=== PATIENT | female | born 1970 ===

== ENCOUNTER 2017-06-23 20:45 | Observation (INO) | payer SELFPAY ==
[2017-06-23] MEDS ORDERED: Sodium Chloride 0.9% 1,000 ML IV STA (21:16)
[2017-06-23] MEDS ORDERED: Iohexol 240 (50 ml) PO ONE (21:18)
--- NOTE | 2017-06-23 21:30 | ED PDOC ---
HPI: Abdomen Time Seen by Provider: 06/23/17 21:02 Chief Complaint (Nursing): Abdominal Pain Chief Complaint (Provider): abdominal pain History Per: Patient, [employer] History/Exam Limitations: no limitations Onset/Duration Of Symptoms: Days (1) Current Symptoms Are (Timing): Still Present Location Of Pain/Discomfort: RLQ, Epigastric, LLQ, Suprapubic Quality Of Discomfort: "Pain" Associated Symptoms: Diarrhea Additional Complaint(s): 47 y/o female presents for evaluation of intermittent lower abdominal pain x 1 day. Patient reports intermittent abdominal pain x 3 months, but states today pain is different and more intense. Patient reports 3 episodes of nonbloody diarrhea today. Denies fever, nausea/vomiting, chest pain, shortness of breath , palpitations, urinary symptoms. Patient states she had abdomen u/s on 06/18 and has appointment next week to follow up for results. Abnormal Vaginal Bleeding: No Last Menstral Period: now Past Medical History Reviewed: Historical Data, Nursing Documentation, Vital Signs Vital Signs: Last Vital Signs Temp 98.9 F 06/24/17 04:08 Pulse 81 06/24/17 04:08 Resp 20 06/24/17 04:08 BP 115/66 06/24/17 04:08 Pulse Ox 99 06/24/17 02:58 - Medical History PMH: Hyperthyroidism - Surgical History Surgical History: - Family History Family History: States: No Known Family Hx - Living Arrangements Living Arrangements: With Family - Home Medications Home Medications: Ambulatory Orders Medication Instructions Recorded Levothyroxine [Synthroid] 1 tab PO DAILY 06/24/17 - Allergies Allergies/Adverse Reactions: Allergies Allergy/AdvReac Type Severity Reaction Status Date / Time No Known Allergies Allergy Verified 06/23/17 20:59 Review of Systems ROS Statement: Except As Marked, All Systems Reviewed And Found Negative Gastrointestinal: Positive for: Abdominal Pain, Diarrhea Physical Exam - Reviewed Nursing Documentation Reviewed: Yes Vital Signs Reviewed: Yes - Physical Exam Appears: Positive for: Well, Non-toxic, No Acute Distress Head Exam: Positive for: ATRAUMATIC, NORMAL INSPECTION, NORMOCEPHALIC Skin: Positive for: Normal Color Eye Exam: Positive for: Normal appearance ENT: Positive for: Normal ENT Inspection Cardiovascular/Chest: Positive for: Regular Rate, Rhythm Respiratory: Positive for: Normal Breath Sounds Gastrointestinal/Abdominal: Positive for: Tenderness (epigastric, rlq, suprapubic, llq) Back: Positive for: Normal Inspection Extremity: Positive for: Normal ROM Neurologic/Psych: Positive for: Alert, Oriented - Laboratory Results Result Diagrams: 06/23/17 21:55 06/23/17 21:55 - ECG ECG: Positive for: Viewed By Me (reviewed by ED attending) ECG Rhythm: Positive for: Sinus Rhythm O2 Sat by Pulse Oximetry: 99 Pulse Ox Interpretation: Normal - Radiology X-Ray: Viewed By Me X-Ray Interpretation: No Acute Disease - Progress ED Course And Treament: labs, urine, IV fluids, IV toradol EXAM: CT Abdomen and Pelvis With Intravenous Contrast CLINICAL HISTORY: 47 years old, female; Pain; Abdominal pain; Epigastric; Prior surgery; Surgery date: 6+ months; Surgery type: ; Additional info: Abd pain TECHNIQUE: Axial computed tomography images of the abdomen and pelvis with intravenous contrast. All CT scans at this facility use one or more dose reduction techniques, viz.: automated exposure control; ma/kV adjustment per patient size (including targeted exams where dose is matched to indication; i.e. head); or iterative reconstruction technique. Coronal and sagittal reformatted images were created and reviewed. CONTRAST: 90 mL of [id number] administered intravenously. COMPARISON: No relevant prior studies available. FINDINGS: Limitations: Motion artifact - mild. Lower thorax: No acute findings. ABDOMEN: Liver: Unremarkable. No mass. Gallbladder and bile ducts: No calcified stones. No ductal dilation. Pancreas: Apparent 1.1 x 0.6 x 0.9 cm hypodense lesion within tail of pancreas. No ductal dilation. Spleen: No splenomegaly. Adrenals: No mass. Kidneys and ureters: No mass. No hydronephrosis. Stomach and bowel: Segmental areas of probable underdistention of LEFT colon. No definite mural thickening. No obstruction. Appendix: Enlarged appendix, measuring up to 1.2 cm in diameter. Mild mucosal enhancement. [id number] stranding about appendix. PELVIS: Bladder: Unremarkable. Reproductive: Unremarkable as visualized. ABDOMEN and PELVIS: Intraperitoneal space: Trace free fluid within pelvis. No free air. Bones/joints: Probable bone islands. No acute fracture. Soft tissues: Tiny umbilical hernia containing fat. Vasculature: Unremarkable. No aneurysm. Lymph nodes: No pathologically enlarged lymph nodes. IMPRESSION: 1. Acute appendicitis. 2. Apparent pancreatic lesion. Recommend nonemergent MRI. 3. Incidental/non-acute findings are described above. IV Zosyn ordered Patient evaluated by Dr. Lopez, surgical scrub technician on-call. Patient evaluated by Dr. Crowley, FP resident on-call for admission. Disposition - Clinical Impression Clinical Impression: Acute appendicitis - Patient ED Disposition Is Patient to be Admitted: Yes - Disposition Disposition Time: 02:20 Condition: FAIR
[2017-06-23] MEDS ORDERED: Iohexol 240 (50 ml) ONE (21:43)
[2017-06-23 22:07] LABS: SQUAMOUS EPITHIAL < 1 /hpf (0-5); URINE BACTERIA RARE (<OCC); URINE BILIRUBIN NEGATIVE (NEGATIVE); URINE BLOOD MODERATE (NEGATIVE); URINE CLARITY CLEAR (Clear); URINE COLOR STRAW (YELLOW); URINE GLUCOSE (UA) NEG (Normal); URINE LEUKOCYTE ESTERASE NEG Leu/uL (Negative); URINE PROTEIN NEGATIVE (NEGATIVE); URINE UROBILINOGEN 0.2-1.0 mg/dL (0.2-1.0)
[2017-06-23 22:12] LABS: ALB/GLOB RATIO 1.3 (1.0-2.1); ALBUMIN 4.5 g/dL (3.5-5.0); ALT/SGPT 39 U/L (9-52); AST/SGOT 36 U/L (14-36); BLOOD UREA NITROGEN 8 mg/dl (7-17); CALCIUM 9.6 mg/dL (8.4-10.2); GFR AFRICAN-AMERICAN > 60; GFR NON-AFRICAN AMERICAN > 60; LIPASE 81 U/L (23-300)
[2017-06-23 22:29] LABS: BASO % 0.3 % (0.0-2.0); EOS # 0.1 K/uL (0.0-0.7); EOS % 0.4 % (0.0-4.0); HEMOGLOBIN 9.8 g/dL (12.0-16.0); LYMPH # 1.2 K/uL (1.0-4.3); LYMPH % 7.5 % (20.0-40.0); MEAN CELL VOLUME 69.1 fl (81.0-99.0); MEAN CORPUSCULAR HEMOGLOBIN 21.1 pg (27.0-31.0); MEAN CORPUSCULAR HGB CONC 30.5 g/dL (33.0-37.0); MEAN PLATELET VOLUME 8.3 fl (7.2-11.7); MONO # 1.2 K/uL (0.0-0.8); MONO % 7.7 % (0.0-10.0); NEUT # 13.1 K/uL (1.8-7.0); NEUT % 84.1 % (50.0-75.0); PLATELET COUNT 318 K/uL (130-400); RBC 4.63 Mil/uL (3.80-5.20); RED CELL DISTRIBUTION WIDTH 17.8 % (11.5-14.5); WHITE BLOOD COUNT 15.5 K/uL (4.8-10.8)
[2017-06-23 23:13] LABS: ANISOCYTOSIS SLIGHT; BANDS 3 % (0-2); LYMPHOCYTE 14 % (20-50); MONOCYTE 6 % (0-10); NEUTROPHIL 77 % (42-75); PLATELET ESTIMATE NORMAL (NORMAL); TOTAL CELLS COUNTED 100
[2017-06-23 23:14] LABS: HYPOCHROMIC SLIGHT; MICROCYTOSIS SLIGHT; OVALOCYTES SLIGHT; POIKILOCYTOSIS SLIGHT; POLYCHROMIC SLIGHT
[2017-06-24] MEDS ORDERED: Sodium Chloride 0.9% 100 ML ONE (01:11)
[2017-06-24] MEDS ORDERED: Iohexol 300 100 ML IJ ONE (01:11)
--- NOTE | 2017-06-24 01:58 | CT ---
EXAM: CT Abdomen and Pelvis With Intravenous Contrast CLINICAL HISTORY: 47 years old, female; Pain; Abdominal pain; Epigastric; Prior surgery; Surgery date: 6+ months; Surgery type: ; Additional info: Abd pain TECHNIQUE: Axial computed tomography images of the abdomen and pelvis with intravenous contrast. All CT scans at this facility use one or more dose reduction techniques, viz.: automated exposure control; ma/kV adjustment per patient size (including targeted exams where dose is matched to indication; i.e. head); or iterative reconstruction technique. Coronal and sagittal reformatted images were created and reviewed. CONTRAST: 90 mL of [id number] administered intravenously. COMPARISON: No relevant prior studies available. FINDINGS: Limitations: Motion artifact - mild. Lower thorax: No acute findings. ABDOMEN: Liver: Unremarkable. No mass. Gallbladder and bile ducts: No calcified stones. No ductal dilation. Pancreas: Apparent 1.1 x 0.6 x 0.9 cm hypodense lesion within tail of pancreas. No ductal dilation. Spleen: No splenomegaly. Adrenals: No mass. Kidneys and ureters: No mass. No hydronephrosis. Stomach and bowel: Segmental areas of probable underdistention of LEFT colon. No definite mural thickening. No obstruction. Appendix: Enlarged appendix, measuring up to 1.2 cm in diameter. Mild mucosal enhancement. [id number] stranding about appendix. PELVIS: Bladder: Unremarkable. Reproductive: Unremarkable as visualized. ABDOMEN and PELVIS: Intraperitoneal space: Trace free fluid within pelvis. No free air. Bones/joints: Probable bone islands. No acute fracture. Soft tissues: Tiny umbilical hernia containing fat. Vasculature: Unremarkable. No aneurysm. Lymph nodes: No pathologically enlarged lymph nodes. IMPRESSION: 1. Acute appendicitis. 2. Apparent pancreatic lesion. Recommend nonemergent MRI. 3. Incidental/non-acute findings are described above.
[2017-06-24] MEDS ORDERED: Piperacillin/Tazobact 3.375 GM in Sodium Chloride 0.9% 100 ML IV ONE (01:59)
[2017-06-24] MEDS ORDERED: Piperacillin/Tazobact 3.375 gm Inj IVPB ONE ×2 (02:02→08:45)
[2017-06-24 02:29] LABS: INR 1.1 (0.9-1.2); PARTIAL THROMBOPLASTIN TIME 30.5 Seconds (25.6-37.1); PROTHROMBIN TIME 12.4 Seconds (9.8-13.1)
--- NOTE | 2017-06-24 02:44 | CP.PCM.CON ---
<JessicaLiun - Last Filed: 06/24/17 02:50> History of Present Illness - History of Present Illness History of Present Illness: General Surgery Consult for Dr. Fleming This is a 47F with a PMH of hypothyroid who presents to the ED with one day of generalized abdominal pain that is more present in the lower abdomen. The pain is associated with nausea and chills however she did not take her temp home and had no episodes of emesis. She denies any changes in bowel habits or caliber. She has never felt any similar pain to this before. she did not take anything at home to try an alleviate the pain. In the ED she had a CT scan of the abdomen which shows an enlarged appendix. PMH:Hypothyroid PSH: ALL:NKDA Social: No tobacco, ethanol or drugs Review of Systems - Review of Systems All systems: reviewed and no additional remarkable complaints except - Constitutional Constitutional: As Per HPI, Chills. absent: Fever - Gastrointestinal Gastrointestinal: Abdominal Pain, Nausea. absent: Change in Bowel Habits, Change in Stool Character, Diarrhea, Vomiting Past Patient History - Past Social History Smoking Status: Never Smoked - ENDOCRINE/METABOLIC Hx Hyperthyroidism: Yes - PSYCHIATRIC Hx Substance Use: No Meds Allergies/Adverse Reactions: Allergies Allergy/AdvReac Type Severity Reaction Status Date / Time No Known Allergies Allergy Verified 06/23/17 20:59 - Medications Medications: Current Medications Piperacillin Sod/Tazobactam (Sod 3.375 gm/ Sodium Chloride) 100 mls @ 100 mls/ hr IV ONCE ONE PRN Reason: Protocol Stop: 06/24/17 02:58 Morphine Sulfate (Morphine) 1 mg IVP Q4 PRN PRN Reason: Pain, moderate (4-7) Morphine Sulfate (Morphine) 2 mg IVP Q6 PRN PRN Reason: Pain, severe (8-10) Pantoprazole Sodium (Protonix Ec Tab) 40 mg PO DAILY AMANDA Physical Exam - Constitutional Appears: Non-toxic, No Acute Distress - Head Exam Head Exam: ATRAUMATIC, NORMOCEPHALIC - Eye Exam Eye Exam: EOMI, Normal appearance - ENT Exam ENT Exam: Mucous Membranes Moist - Respiratory Exam Respiratory Exam: NORMAL BREATHING PATTERN - Cardiovascular Exam Cardiovascular Exam: +S1, +S2 - GI/Abdominal Exam GI & Abdominal Exam: Hernia, Rebound, Soft. absent: Firm, Guarding Additional comments: Significant tenderness more progressed in the RLQ - Neurological Exam Neurological exam: Alert - Psychiatric Exam Psychiatric exam: Normal Affect, Normal Mood - Skin Skin Exam: Dry, Intact Results - Vital Signs Recent Vital Signs: Last Vital Signs Temp 99.2 F 06/23/17 20:55 Pulse 84 06/23/17 20:55 Resp 18 06/23/17 20:55 BP 136/72 06/23/17 20:55 Pulse Ox 99 06/24/17 02:37 - Labs Result Diagrams: 06/23/17 21:55 06/23/17 21:55 Labs: Laboratory Results - last 24 hr 06/23/17 06/23/17 06/23/17 21:55 21:55 21:55 WBC 15.5 H D RBC 4.63 Hgb 9.8 L Hct 32.0 L MCV 69.1 L D MCH 21.1 L MCHC 30.5 L RDW 17.8 H Plt Count 318 MPV 8.3 Neut % (Auto) 84.1 H Lymph % (Auto) 7.5 L Morrill % (Auto) 7.7 Eos % (Auto) 0.4 Baso % (Auto) 0.3 Neut # (Auto) 13.1 H Lymph # (Auto) 1.2 Morrill # (Auto) 1.2 H Eos # (Auto) 0.1 Baso # (Auto) 0.0 Neutrophils % (Manual) 77 H Band Neutrophils % 3 H Lymphocytes % (Manual) 14 L Monocytes % (Manual) 6 Platelet Estimate Normal Polychromasia Slight Hypochromasia (manual) Slight Poikilocytosis (manual Slight Anisocytosis (manual) Slight Microcytosis (manual) Slight Ovalocytes Slight PT INR APTT Sodium 142 Potassium 4.0 Chloride 102 Carbon Dioxide 26 Anion Gap 18 BUN 8 Creatinine 0.6 L Est GFR ( Amer) > 60 Est GFR (Non-Af Amer) > 60 Random Glucose 107 H Calcium 9.6 Total Bilirubin 1.3 AST 36 ALT 39 Alkaline Phosphatase 85 Total Protein 7.9 Albumin 4.5 Globulin 3.4 Albumin/Globulin Ratio 1.3 Lipase 81 Urine Color Straw Urine Clarity Clear Urine pH 7.0 Ur Specific [place] 1.005 Urine Protein Negative Urine Glucose (UA) Neg Urine Ketones Negative Urine Blood Moderate Urine Nitrate Negative Urine Bilirubin Negative Urine Urobilinogen 0.2-1.0 Ur Leukocyte Esterase Neg Urine RBC (Auto) 7 H Urine Microscopic WBC < 1 Ur Squamous Epith Cells < 1 Urine Bacteria Rare 06/24/17 02:00 WBC RBC Hgb Hct MCV MCH MCHC RDW Plt Count MPV Neut % (Auto) Lymph % (Auto) Morrill % (Auto) Eos % (Auto) Baso % (Auto) Neut # (Auto) Lymph # (Auto) Morrill # (Auto) Eos # (Auto) Baso # (Auto) Neutrophils % (Manual) Band Neutrophils % Lymphocytes % (Manual) Monocytes % (Manual) Platelet Estimate Polychromasia Hypochromasia (manual) Poikilocytosis (manual Anisocytosis (manual) Microcytosis (manual) Ovalocytes PT 12.4 INR 1.1 APTT 30.5 Sodium Potassium Chloride Carbon Dioxide Anion Gap BUN Creatinine Est GFR ( Amer) Est GFR (Non-Af Amer) Random Glucose Calcium Total Bilirubin AST ALT Alkaline Phosphatase Total Protein Albumin Globulin Albumin/Globulin Ratio Lipase Urine Color Urine Clarity Urine pH Ur Specific [place] Urine Protein Urine Glucose (UA) Urine Ketones Urine Blood Urine Nitrate Urine Bilirubin Urine Urobilinogen Ur Leukocyte Esterase Urine RBC (Auto) Urine Microscopic WBC Ur Squamous Epith Cells Urine Bacteria Assessment & Plan - Assessment and Plan (Free Text) Assessment: 47F with acute appendicitis NPO Zosyn IVF Possible OR later unless determined to be ruptured D/W Dr. Bernadette Lopez PGY2 <Ramone Fleming - Last Filed: 06/24/17 08:49> History of Present Illness - History of Present Illness History of Present Illness: Patient was seen and examined at the bedside. Agree with resident's note above. Meds - Medications Medications: Current Medications Sodium Chloride (Sodium Chloride 0.9%) 1,000 mls @ 125 mls/hr IV .Q8H AMANDA Stop: 06/25/17 02:48 Lactated Ringer's (Lactated Ringer's) 1,000 mls @ 125 mls/hr IV .Q8H AMANDA Last Admin: 06/24/17 03:46 Dose: 125 mls/hr Piperacillin Sod/Tazobactam (Sod 3.375 gm/ Sodium Chloride) 100 mls @ 100 mls/ hr IVPB 0300,0900,1500,2100 AMANDA PRN Reason: Protocol Levothyroxine Sodium (Synthroid) 75 mcg PO DAILY@0630 [facility] Morphine Sulfate (Morphine) 4 mg IVP Q6 PRN PRN Reason: Pain, severe (8-10) Morphine Sulfate (Morphine) 2 mg IVP Q4 PRN PRN Reason: Pain, moderate (4-7) Last Admin: 06/24/17 04:04 Dose: 2 mg Ondansetron HCl (Zofran Inj) 4 mg IVP Q4 PRN PRN Reason: Nausea/Vomiting Pantoprazole Sodium (Protonix Ec Tab) 40 mg PO DAILY [facility] Physical Exam - GI/Abdominal Exam Additional comments: soft, RLQ tenderness, ND, BS+, no rebound, no guarding Results - Vital Signs Recent Vital Signs: Last Vital Signs Temp 98.6 F 06/24/17 08:07 Pulse 88 06/24/17 08:07 Resp 20 06/24/17 08:07 BP 95/52 L 06/24/17 08:07 Pulse Ox 97 06/24/17 08:07 - Labs Result Diagrams: 06/24/17 06:00 06/24/17 06:05 Labs: Laboratory Results - last 24 hr 06/23/17 06/23/17 06/23/17 21:55 21:55 21:55 WBC 15.5 H D RBC 4.63 Hgb 9.8 L Hct 32.0 L MCV 69.1 L D MCH 21.1 L MCHC 30.5 L RDW 17.8 H Plt Count 318 MPV 8.3 Neut % (Auto) 84.1 H Lymph % (Auto) 7.5 L Morrill % (Auto) 7.7 Eos % (Auto) 0.4 Baso % (Auto) 0.3 Neut # (Auto) 13.1 H Lymph # (Auto) 1.2 [place]rill # (Auto) 1.2 H Eos # (Auto) 0.1 Baso # (Auto) 0.0 Neutrophils % (Manual) 77 H Band Neutrophils % 3 H Lymphocytes % (Manual) 14 L Monocytes % (Manual) 6 Platelet Estimate Normal Polychromasia Slight Hypochromasia (manual) Slight Poikilocytosis (manual Slight Anisocytosis (manual) Slight Microcytosis (manual) Slight Ovalocytes Slight PT INR APTT Sodium 142 Potassium 4.0 Chloride 102 Carbon Dioxide 26 Anion Gap 18 BUN 8 Creatinine 0.6 L Est GFR ( Amer) > 60 Est GFR (Non-Af Amer) > 60 Random Glucose 107 H Calcium 9.6 Total Bilirubin 1.3 AST 36 ALT 39 Alkaline Phosphatase 85 Total Protein 7.9 Albumin 4.5 Globulin 3.4 Albumin/Globulin Ratio 1.3 Lipase 81 Urine Color Straw Urine Clarity Clear Urine pH 7.0 Ur Specific [place] 1.005 Urine Protein Negative Urine Glucose (UA) Neg Urine Ketones Negative Urine Blood Moderate Urine Nitrate Negative Urine Bilirubin Negative Urine Urobilinogen 0.2-1.0 Ur Leukocyte Esterase Neg Urine RBC (Auto) 7 H Urine Microscopic WBC < 1 Ur Squamous Epith Cells < 1 Urine Bacteria Rare 06/24/17 06/24/17 06/24/17 02:00 06:00 06:05 WBC 17.5 H RBC 4.09 Hgb 8.8 L Hct 27.8 L MCV 68.0 L MCH 21.5 L MCHC 31.6 L RDW 18.3 H Plt Count 281 MPV 7.8 Neut % (Auto) 88.9 H Lymph % (Auto) 5.5 L Morrill % (Auto) 5.3 Eos % (Auto) 0.1 Baso % (Auto) 0.2 Neut # (Auto) 15.6 H Lymph # (Auto) 1.0 Morrill # (Auto) 0.9 H Eos # (Auto) 0.0 Baso # (Auto) 0.0 Neutrophils % (Manual) Band Neutrophils % Lymphocytes % (Manual) Monocytes % (Manual) Platelet Estimate Polychromasia Hypochromasia (manual) Poikilocytosis (manual Anisocytosis (manual) Microcytosis (manual) Ovalocytes PT 12.4 INR 1.1 APTT 30.5 Sodium 141 Potassium 3.6 Chloride 106 Carbon Dioxide 22 Anion Gap 17 BUN 8 Creatinine 0.6 L Est GFR ( Amer) > 60 Est GFR (Non-Af Amer) > 60 Random Glucose 125 H Calcium 8.6 Total Bilirubin 2.2 H AST 37 H ALT 33 Alkaline Phosphatase 78 Total Protein 6.9 Albumin 3.7 Globulin 3.2 Albumin/Globulin Ratio 1.2 Lipase Urine Color Urine Clarity Urine pH Ur Specific [place] Urine Protein Urine Glucose (UA) Urine Ketones Urine Blood Urine Nitrate Urine Bilirubin Urine Urobilinogen Ur Leukocyte Esterase Urine RBC (Auto) Urine Microscopic WBC Ur Squamous Epith Cells Urine Bacteria - Imaging and Cardiology CT scan - abdomen Status: Image reviewed by me, Report reviewed by me Assessment & Plan - Assessment and Plan (Free Text) Plan: - Keep NPO - IV fluids - pain control - Zofran prn - To OR for Appendectomy
[2017-06-24] MEDS ORDERED: Sodium Chloride 0.9% 1,000 ML IV SCH (03:00)
[2017-06-24] MEDS ORDERED: Morphine 4 MG/ML VIAL IVP PRN ×2 (03:33→09:38)
[2017-06-24] MEDS ORDERED: Lactated Ringer's 1,000 ML IV SCH (03:45)
[2017-06-24] MEDS ORDERED: Piperacillin/Tazobact 3.375 GM in Sodium Chloride 0.9% 100 ML IVPB SCH (04:00)
--- NOTE | 2017-06-24 04:01 | CP.PCM.HP ---
History of Present Illness - History of Present Illness History of Present Illness: 47 year old female presents with 3 day history of worsening abdominal pain and diarrhea. Abdominal pain is severe, periumbilcal with associated nausea. Notes she had multiple episodes of non bloody diarrhea. No fevers or chills. She went to work today but pain became so severe she came to ED. Did not take medications for pain at home. She has history of epigastric pain and bloating. Seen in clinic and tested for h.pylori that was positive, and abd u/s done outpatient was unremarkable. LMP : 06/23/17, reports 2 days of heavy bleeding x 10 pads on those days, total of 5 days. PMD: Dr. Pena PMH: hypothyroidism, anemia Medications: Levothyroxine 75 mcg Allergies: NKDA Social: Denies etoh, tobacco, illicit drug use. 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 Surgical Hx: x 1 (2003) Family hx unknown Present on Admission - Present on Admission Any Indicators Present on Admission: No Review of Systems - Constitutional Constitutional: absent: Chills, Fever - EENT Eyes: absent: Diplopia, Photophobia Ears: absent: Decreased Hearing Nose/Mouth/Throat: absent: Nasal Congestion, Nose Pain, Neck Pain - Respiratory Respiratory: absent: Cough, Dyspnea, Wheezing, Stridor - Gastrointestinal Gastrointestinal: Abdominal Pain Past Patient History - Past Social History Smoking Status: Never Smoked - ENDOCRINE/METABOLIC Hx Hypothyroidism: Yes - PSYCHIATRIC Hx Substance Use: No Meds Allergies/Adverse Reactions: Allergies Allergy/AdvReac Type Severity Reaction Status Date / Time No Known Allergies Allergy Verified 06/23/17 20:59 Physical Exam - Constitutional Appears: In Acute Distress (secondary to pain) - Head Exam Head Exam: ATRAUMATIC, NORMAL INSPECTION, NORMOCEPHALIC - Eye Exam Eye Exam: EOMI, Normal appearance, PERRL - ENT Exam ENT Exam: Mucous Membranes Moist - Neck Exam Neck exam: Positive for: Normal Inspection - Respiratory Exam Respiratory Exam: Clear to Auscultation Bilateral, NORMAL BREATHING PATTERN. absent: Decreased Breath Sounds, Rhonchi, Wheezes, Respiratory Distress - Cardiovascular Exam Cardiovascular Exam: REGULAR RHYTHM, +S1, +S2 - GI/Abdominal Exam GI & Abdominal Exam: Hypoactive Bowel Sounds, Rebound, Soft, Tenderness (RLQ worst, periumbulical). absent: Distended, Firm Additional comments: obturator sign positive rovsings sign positive - Rectal Exam Rectal Exam: Deferred - Extremities Exam Extremities exam: Positive for: normal inspection. Negative for: pedal edema - Neurological Exam Neurological exam: Alert, CN II-XII Intact, Oriented x3 - Psychiatric Exam Psychiatric exam: Normal Affect, Normal Mood - Skin Skin Exam: Dry, Intact, Pallor Results - Vital Signs Recent Vital Signs: Last Vital Signs Temp 98.9 F 06/24/17 02:50 Pulse 81 06/24/17 02:50 Resp 20 06/24/17 02:50 BP 115/66 06/24/17 02:50 Pulse Ox 99 06/24/17 02:58 - Labs Result Diagrams: 06/24/17 06:00 06/23/17 21:55 Labs: Laboratory Results - last 24 hr 06/23/17 06/23/17 06/23/17 21:55 21:55 21:55 WBC 15.5 H D RBC 4.63 Hgb 9.8 L Hct 32.0 L MCV 69.1 L D MCH 21.1 L MCHC 30.5 L RDW 17.8 H Plt Count 318 MPV 8.3 Neut % (Auto) 84.1 H Lymph % (Auto) 7.5 L Ellis % (Auto) 7.7 Eos % (Auto) 0.4 Baso % (Auto) 0.3 Neut # (Auto) 13.1 H Lymph # (Auto) 1.2 Ellis # (Auto) 1.2 H Eos # (Auto) 0.1 Baso # (Auto) 0.0 Neutrophils % (Manual) 77 H Band Neutrophils % 3 H Lymphocytes % (Manual) 14 L Monocytes % (Manual) 6 Platelet Estimate Normal Polychromasia Slight Hypochromasia (manual) Slight Poikilocytosis (manual Slight Anisocytosis (manual) Slight Microcytosis (manual) Slight Ovalocytes Slight PT INR APTT Sodium 142 Potassium 4.0 Chloride 102 Carbon Dioxide 26 Anion Gap 18 BUN 8 Creatinine 0.6 L Est GFR ( Amer) > 60 Est GFR (Non-Af Amer) > 60 Random Glucose 107 H Calcium 9.6 Total Bilirubin 1.3 AST 36 ALT 39 Alkaline Phosphatase 85 Total Protein 7.9 Albumin 4.5 Globulin 3.4 Albumin/Globulin Ratio 1.3 Lipase 81 Urine Color Straw Urine Clarity Clear Urine pH 7.0 Ur Specific [place] 1.005 Urine Protein Negative Urine Glucose (UA) Neg Urine Ketones Negative Urine Blood Moderate Urine Nitrate Negative Urine Bilirubin Negative Urine Urobilinogen 0.2-1.0 Ur Leukocyte Esterase Neg Urine RBC (Auto) 7 H Urine Microscopic WBC < 1 Ur Squamous Epith Cells < 1 Urine Bacteria Rare 06/24/17 02:00 WBC RBC Hgb Hct MCV MCH MCHC RDW Plt Count MPV Neut % (Auto) Lymph % (Auto) Ellis % (Auto) Eos % (Auto) Baso % (Auto) Neut # (Auto) Lymph # (Auto) Ellis # (Auto) Eos # (Auto) Baso # (Auto) Neutrophils % (Manual) Band Neutrophils % Lymphocytes % (Manual) Monocytes % (Manual) Platelet Estimate Polychromasia Hypochromasia (manual) Poikilocytosis (manual Anisocytosis (manual) Microcytosis (manual) Ovalocytes PT 12.4 INR 1.1 APTT 30.5 Sodium Potassium Chloride Carbon Dioxide Anion Gap BUN Creatinine Est GFR ( Amer) Est GFR (Non-Af Amer) Random Glucose Calcium Total Bilirubin AST ALT Alkaline Phosphatase Total Protein Albumin Globulin Albumin/Globulin Ratio Lipase Urine Color Urine Clarity Urine pH Ur Specific [place] Urine Protein Urine Glucose (UA) Urine Ketones Urine Blood Urine Nitrate Urine Bilirubin Urine Urobilinogen Ur Leukocyte Esterase Urine RBC (Auto) Urine Microscopic WBC Ur Squamous Epith Cells Urine Bacteria Assessment & Plan (1) Acute appendicitis Assessment and Plan: 47 year old female presented with severe, worsening abdominal pain with associated nausea and diarrhea. She is afebrile with leukocytosis of 15, CT scan revealed appendicitis. Given zosyn in ED will continue. Surgical consult. NPO IVF: LR Zofran for nausea, morphine for pain control. Status: Acute (2) Hypothyroid Assessment and Plan: continue home medications Status: Chronic (3) Obesity (BMI 30.0-34.9) Assessment and Plan: outpatient management Status: Chronic (4) DVT prophylaxis Assessment and Plan: scds for now, lovenox post op Status: Acute
[2017-06-24 06:46] LABS: BASO % 0.2 % (0.0-2.0); EOS % 0.1 % (0.0-4.0); HEMOGLOBIN 8.8 g/dL (12.0-16.0); LYMPH % 5.5 % (20.0-40.0); MEAN CORPUSCULAR HEMOGLOBIN 21.5 pg (27.0-31.0); MEAN CORPUSCULAR HGB CONC 31.6 g/dL (33.0-37.0); MEAN PLATELET VOLUME 7.8 fl (7.2-11.7); MONO # 0.9 K/uL (0.0-0.8); MONO % 5.3 % (0.0-10.0); NEUT # 15.6 K/uL (1.8-7.0); NEUT % 88.9 % (50.0-75.0); RBC 4.09 Mil/uL (3.80-5.20); RED CELL DISTRIBUTION WIDTH 18.3 % (11.5-14.5); WHITE BLOOD COUNT 17.5 K/uL (4.8-10.8)
[2017-06-24] MEDS ORDERED: Propofol 10 mg/ml Inj (20 ML) ONE ×2 (08:09→09:29)
[2017-06-24] MEDS ORDERED: ePHEDrine 50 mg/ml Inj ONE (08:10)
[2017-06-24] MEDS ORDERED: Midazolam 2 MG/2 ML VIAL ONE (08:10)
[2017-06-24] MEDS ORDERED: Rocuronium 10 mg/ml (5 ml) ONE (08:10)
[2017-06-24] MEDS ORDERED: Succinylcholine 200 mg/10 ml Inj IV ONE (08:10)
[2017-06-24] MEDS ORDERED: Sevoflurane - Inhalation Anesthetic Liq (250 ml) ONE (08:22)
[2017-06-24 08:33] LABS: ALB/GLOB RATIO 1.2 (1.0-2.1); ALBUMIN 3.7 g/dL (3.5-5.0); ALT/SGPT 33 U/L (9-52); AST/SGOT 37 U/L (14-36); BLOOD UREA NITROGEN 8 mg/dl (7-17); CALCIUM 8.6 mg/dL (8.4-10.2); GFR AFRICAN-AMERICAN > 60; GFR NON-AFRICAN AMERICAN > 60
[2017-06-24] MEDS ORDERED: Bupivacaine 0.5% Inj(30mL) ONE (08:33)
[2017-06-24] MEDS ORDERED: Lactated Ringer's 1,000 ML IV ONE ×2 (08:40→11:00)
--- NOTE | 2017-06-24 08:42 | RAD ---
HISTORY: admit COMPARISON: 11/05/2016 FINDINGS: LUNGS: No active pulmonary disease. PLEURA: No significant pleural effusion identified, no pneumothorax apparent. CARDIOVASCULAR: Normal. OSSEOUS STRUCTURES: No significant abnormalities. VISUALIZED UPPER ABDOMEN: Normal. OTHER FINDINGS: None. IMPRESSION: No active disease. No interval pathology noted
[2017-06-24] MEDS ORDERED: Lactated Ringer's 500 ML IV ONE (09:00)
[2017-06-24 09:07] LABS: IRON 10 ug/dL (37-170)
[2017-06-24 09:16] LABS: % IRON SATURATION 2 % (20-55); TOTAL IRON BINDING CAPACITY 485 ug/dL (250-450)
[2017-06-24] MEDS ORDERED: Dexamethasone 4 mg/1 ml ONE (09:18)
[2017-06-24] MEDS ORDERED: Neostigmine 1:1000 (1 mg/ml) Inj ONE (09:22)
[2017-06-24] MEDS ORDERED: Bupivacaine 0.5% Inj(30mL) IJ ONE (09:30)
[2017-06-24] MEDS ORDERED: Oxycodone/Acetaminophen 5/325 mg Tab PO PRN ×2 (09:38→09:42)
--- NOTE | 2017-06-24 09:44 | PCM.SURG1 ---
Surgeon's Initial Post Op Note - Surgeon's Notes Surgeon: Bernadette Director Trading: None Type of Anesthesia: General Endo Anesthesia Administered By: Frances Pre-Operative Diagnosis: acute appendicitis Operative Findings: gangrenous appendicitis Post-Operative Diagnosis: gangrenous appendicitis Operation Performed: Laparoscopic Appendectomy Specimen/Specimens Removed: Appendix Estimated Blood Loss: EBL {In ML}: 10 Blood Products Given: N/A Drains Used: No Drains Post-Op Condition: Good Date of Surgery/Procedure: 06/24/17 Time of Surgery/Procedure: 09:00
[2017-06-24] MEDS ORDERED: HYDROmorphone 0.5 mg/0.5 ml ISec IVP PRN (10:08)
[2017-06-24] MEDS: Piperacillin/Tazobact 3.375 GM in Sodium Chloride 0.9% 100 ML IVPB SCH ×3 (11:04→20:38)
--- NOTE | 2017-06-24 11:34 | CP.PCM.PN ---
Subjective - Date & Time of Evaluation Date of Evaluation: 06/24/17 Time of Evaluation: 08:31 - Subjective Subjective: 47 year old female with PMHx hypothyroidism, anemia, seen at bedside for worsening abdominal pain secondary to acute appendicitis. Patient is AAO x 3 resting in bed at time of examination. She states that her pain in her abdomen is still 9/10 today. Denies any diarrhea since yesterday. Denies any acute overnight events or any new complaints. Denies an recent N/V/F/C/CP/SOB/ posterior calf pain when squeezed. Patient states that she has been NPO since last night. Objective - Vital Signs/Intake and Output Vital Signs (last 24 hours): Temp Pulse Resp BP Pulse Ox 98.6 F 88 20 95/52 L 97 06/24/17 08:07 06/24/17 08:07 06/24/17 08:07 06/24/17 08:07 06/24/17 08:07 Intake and Output: 06/24/17 06/24/17 06:59 18:59 Intake Total 1200 Balance 1200 - Medications Medications: Current Medications Hydromorphone HCl (Dilaudid) 0.5 mg IVP Q10M PRN PRN Reason: Pain, severe (8-10) Stop: 06/24/17 12:09 Piperacillin Sod/Tazobactam (Sod 3.375 gm/ Sodium Chloride) 100 mls @ 100 mls/ hr IVPB 0300,0900,1500,2100 AMANDA PRN Reason: Protocol Last Admin: 06/24/17 11:04 Dose: Not Given Lactated Ringer's (Lactated Ringer's) 1,000 mls @ 75 mls/hr IV .[id number] [facility] Levothyroxine Sodium (Synthroid) 75 mcg PO DAILY@0630 [facility] Morphine Sulfate (Morphine) 2 mg IVP Q4 PRN PRN Reason: Pain, moderate (4-7) Last Admin: 06/24/17 04:04 Dose: 2 mg Morphine Sulfate (Morphine) 4 mg IVP Q4 PRN PRN Reason: Pain, severe (8-10) Ondansetron HCl (Zofran Inj) 4 mg IVP Q4 PRN PRN Reason: Nausea/Vomiting Ondansetron HCl (Zofran Inj) 4 mg IVP ONCE PRN PRN Reason: Nausea/Vomiting Stop: 06/24/17 12:09 Oxycodone/Acetaminophen (Percocet 5/325 Mg Tab) 1 tab PO Q4 PRN PRN Reason: Pain, Mild (1-3) Stop: 06/27/17 09:39 Oxycodone/Acetaminophen (Percocet 5/325 Mg Tab) 2 tab PO Q4 PRN PRN Reason: Pain, moderate (4-7) Stop: 06/27/17 09:43 Pantoprazole Sodium (Protonix Ec Tab) 40 mg PO DAILY AMANDA - Labs Labs: 06/24/17 06:00 06/24/17 06:05 PT 12.4 Seconds (9.8-13.1) 06/24/17 02:00 INR 1.1 (0.9-1.2) 06/24/17 02:00 APTT 30.5 Seconds (25.6-37.1) 06/24/17 02:00 - Constitutional Appears: Well, Toxic, In Acute Distress - Head Exam Head Exam: ATRAUMATIC, NORMOCEPHALIC - Eye Exam Eye Exam: EOMI, PERRL Pupil Exam: PERRL - ENT Exam ENT Exam: Mucous Membranes Moist - Respiratory Exam Respiratory Exam: Clear to Ausculation Bilateral - GI/Abdominal Exam GI & Abdominal Exam: Guarding, Tenderness - Rectal Exam Rectal Exam: Deferred - Extremities Exam Extremities Exam: Normal Capillary Refill. absent: Calf Tenderness - Neurological Exam Neurological Exam: Alert, Awake, Oriented x3 - Psychiatric Exam Psychiatric exam: Normal Affect, Normal Mood - Skin Skin Exam: Intact, Normal Color, Warm Assessment and Plan - Assessment and Plan (Free Text) Assessment: 47 year old female with PMHx hypothyroidism, anemia, seen at bedside for worsening abdominal pain secondary to acute appendicitis Plan: Acute appendicitis - Continue with current pain management - WBC 17.5 - Continue Zosyn - F/u labs in AM - Patient to OR today for emergent appendectomy - Management per Surgery team - IVF: LRs - Liquid diet per surgery Anemia - Venefir 200 mg IV for low iron levels - H/H 8.8/27.8 - F/u AM labs Hypotension - Asymptomatic - BP 95/52 - Continue LRs - Monitor post op Hypothyroid - Continue home medications Obesity (BMI 30.0-34.9) -Outpatient management DVT prophylaxis - SCDs - Lovenox to start in AM
[2017-06-24] MEDS: Lactated Ringer's 1,000 ML IV SCH (12:52)
--- NOTE | 2017-06-24 13:15 | OP ---
PROCEDURE DATE: PREOPERATIVE DIAGNOSIS: Acute appendicitis. POSTOPERATIVE DIAGNOSIS: Gangrenous acute appendicitis. PROCEDURE: Laparoscopic appendectomy. SURGEON: Ramone Fleming MD TUFTING CREELER: None. TYPE OF ANESTHESIA: General endotracheal intubation. ANESTHESIA ADMINISTERED BY: Dr. Ayers. INTRAVENOUS FLUIDS: Crystalloids. ESTIMATED BLOOD LOSS: 10 mL. INTRAOPERATIVE FINDINGS: Gangrenous appendix. SPECIMENS: Appendix. BRIEF HISTORY: Ms. Henderson is a very pleasant 47-year-old female who came to the hospital complaining of lower abdominal pain for the duration of one day and upon further investigation, the patient was found to have elevated white blood cell count to 17 as well as CAT scan findings significant for acute appendicitis. All the risks and benefits of the procedure were explained to the patient and with the patient having a full understanding of all the risks and benefits involved, informed consent was obtained and the patient was taken to the operating room for above-stated procedure. DESCRIPTION OF PROCEDURE: The patient was brought into the operating room and placed supine on the operating table. Bilateral Flowtron boots were applied to the patient's lower extremities. After successful induction of anesthesia and successful endotracheal intubation by the anesthesia team, Pereira catheter was inserted into the patient's urinary bladder and subsequent to that, the patient's abdomen was prepped with ChloraPrep stick and draped in the standard surgical fashion. Prior to the beginning of the procedure, a time-out was called in the room and everyone in the room were in agreement. Using Veress needle, the patient's abdomen was entered at the umbilicus and pneumoperitoneum was achieved with good opening pressures. Once this was accomplished, using an 11-blade scalpel knife, approximately 5-mm incision was made in the longitudinal fashion in the umbilicus and subsequent to that, 5-mm trocar was introduced into the patient's abdomen. Then 5-mm 0-degree scope was introduced into the patient's abdomen and the abdomen was inspected. I immediately was able to visualize inflammatory changes in the right lower quadrant of the patient's abdomen and then attention was turned to the lower mid abdomen using an 11-blade scalpel knife, 5-mm incision was made in transverse fashion and subsequent to that, another 5-mm trocar was introduced into the patient's abdomen. Then attention was turned to the left lower quadrant of the patient's abdomen. Using 11-blade scalpel knife, approximately 1-cm incision was made in a transverse fashion and subsequent to that, 12-mm trocar was introduced into the patient's abdomen. At this point in time, using two graspers, the appendix was mobilized and using [place] dissector, a window was created between the appendix and the mesoappendix. Appendix was taken right at the base with 45-mm blue load Endo MARÍA stapler. Once the appendix was transected, mesoappendix was taken with 45-mm white load on Endo MARÍA stapler. Once the mesoappendix was stapled off, appendix was completely freed up, EndoCatch bag was introduced into the patient's abdomen and appendix was placed in the bag and bag was closed. At this point in time, there appeared to be little bit oozing at the stapler line of the mesoappendix that was controlled with one 10-mm clip. At this point in time, the right lower quadrant was inspected for hemostasis. Hemostasis was confirmed. Once this was accomplished, 12-mm trocar together with the EndoCatch bag and appendix were removed from the patient's abdomen and passed off to the [facility] as a specimen. Fascial layer at 12-mm trocar site was closed with two interrupted 0 Vicryl sutures on UR-5 needle and subsequent to that, the patient's abdomen was fully desufflated. The rest of the trocars were removed from the patient's abdomen and the skin was closed with 4-0 Monocryl suture in running subcuticular fashion. At the end of the procedure, incision sites were infiltrated with Marcaine anesthetic. The patient's abdomen was washed and dried, and Dermabond was applied to the site of the incisions. Pereira catheter was removed from the patient's urinary bladder. The patient was then extubated by the Anesthesia Team and [facility] and taken to the recovery room in a stable condition. At the end of the procedure, all instrument counts, needles, and sponges were correct. Ramone Fleming MD TO
[2017-06-24 13:17] LABS: FOLATE 12.3 ng/mL
[2017-06-24] MEDS: Levothyroxine 75 MCG TAB PO SCH (13:38)
[2017-06-24] MEDS: Pantoprazole 40 mg EC Tab PO SCH (13:38)
--- NOTE | 2017-06-24 19:32 | CARD ---
APPROVED REPORT EKG Measurement Heart [id number] <Conclusion> Sinus rhythm with premature atrial complexes Otherwise normal ECG
[2017-06-25] MEDS: Lactated Ringer's 1,000 ML IV SCH (00:54)
[2017-06-25] MEDS: Piperacillin/Tazobact 3.375 GM in Sodium Chloride 0.9% 100 ML IVPB SCH ×2 (03:37→09:43)
[2017-06-25] MEDS: Levothyroxine 75 MCG TAB PO SCH (05:56)
[2017-06-25 06:16] LABS: BASO % 0.3 % (0.0-2.0); HEMOGLOBIN 8.2 g/dL (12.0-16.0); LYMPH # 0.9 K/uL (1.0-4.3); LYMPH % 6.1 % (20.0-40.0); MEAN CELL VOLUME 68.3 fl (81.0-99.0); MEAN CORPUSCULAR HEMOGLOBIN 21.5 pg (27.0-31.0); MEAN CORPUSCULAR HGB CONC 31.5 g/dL (33.0-37.0); MONO # 0.8 K/uL (0.0-0.8); MONO % 5.5 % (0.0-10.0); NEUT # 12.8 K/uL (1.8-7.0); NEUT % 88.1 % (50.0-75.0); RBC 3.8 Mil/uL (3.80-5.20); RED CELL DISTRIBUTION WIDTH 18.3 % (11.5-14.5); WHITE BLOOD COUNT 14.5 K/uL (4.8-10.8)
[2017-06-25 06:19] LABS: BLOOD UREA NITROGEN 7 mg/dl (7-17); CALCIUM 8.6 mg/dL (8.4-10.2); GFR AFRICAN-AMERICAN > 60; GFR NON-AFRICAN AMERICAN > 60
--- NOTE | 2017-06-25 07:29 | CP.PCM.PN ---
<Yvonne Christianson - Last Filed: 06/25/17 07:27> Subjective - Date & Time of Evaluation Date of Evaluation: 06/25/17 Time of Evaluation: 07:27 - Subjective Subjective: Surgery Progress note: Dr. Fleming 47 year old female seen 1 day s/p appendectomy. Patient reports of mild pain at the incision sites. Denies of any acute overnight events. Reports she has been walking around. Denies of having F/N/V/C/SOB/CP/abdominal pain. No new complains. Objective - Vital Signs/Intake and Output Vital Signs (last 24 hours): Temp Pulse Resp BP Pulse Ox 98.2 F 74 20 95/59 L 95 06/25/17 04:24 06/25/17 04:24 06/25/17 04:24 06/25/17 04:24 06/25/17 04:24 - Medications Medications: Current Medications Enoxaparin Sodium (Lovenox) 40 mg SC DAILY COUNTS INCLUDE 234 BEDS AT THE [facility] PRN Reason: Protocol Piperacillin Sod/Tazobactam (Sod 3.375 gm/ Sodium Chloride) 100 mls @ 100 mls/ hr IVPB 0300,0900,1500,2100 COUNTS INCLUDE 234 BEDS AT THE [facility] PRN Reason: Protocol Last Admin: 06/25/17 03:37 Dose: 100 mls/hr Lactated Ringer's (Lactated Ringer's) 1,000 mls @ 75 mls/hr IV .[id number] COUNTS INCLUDE 234 BEDS AT THE [facility] Last Admin: 06/25/17 00:54 Dose: 75 mls/hr Iron Sucrose 200 mg/ Sodium (Chloride) 110 mls @ 110 mls/hr IVPB ONCE ONE Stop: 06/25/17 09:59 Levothyroxine Sodium (Synthroid) 75 mcg PO DAILY@0630 COUNTS INCLUDE 234 BEDS AT THE [facility] Last Admin: 06/25/17 05:56 Dose: 75 mcg Morphine Sulfate (Morphine) 4 mg IVP Q4 PRN PRN Reason: Pain, severe (8-10) Ondansetron HCl (Zofran Inj) 4 mg IVP Q4 PRN PRN Reason: Nausea/Vomiting Oxycodone/Acetaminophen (Percocet 5/325 Mg Tab) 1 tab PO Q4 PRN PRN Reason: Pain, Mild (1-3) Stop: 06/27/17 09:39 Oxycodone/Acetaminophen (Percocet 5/325 Mg Tab) 2 tab PO Q4 PRN PRN Reason: Pain, moderate (4-7) Stop: 06/27/17 09:43 Pantoprazole Sodium (Protonix Ec Tab) 40 mg PO DAILY AMANDA Last Admin: 06/24/17 13:38 Dose: 40 mg - Labs Labs: 06/25/17 05:30 06/25/17 05:30 PT 12.4 Seconds (9.8-13.1) 06/24/17 02:00 INR 1.1 (0.9-1.2) 06/24/17 02:00 APTT 30.5 Seconds (25.6-37.1) 06/24/17 02:00 - Constitutional Appears: Well, Non-toxic, No Acute Distress - Head Exam Head Exam: ATRAUMATIC - Eye Exam Eye Exam: Normal appearance - ENT Exam ENT Exam: Normal Exam - Neck Exam Neck Exam: Normal Inspection - Respiratory Exam Respiratory Exam: NORMAL BREATHING PATTERN - GI/Abdominal Exam GI & Abdominal Exam: Soft. absent: Rigid, Hernia, Mass Additional comments: Incision site is intact with no dehiscence. - Rectal Exam Rectal Exam: Deferred - Extremities Exam Extremities Exam: Full ROM, Normal Inspection - Back Exam Back Exam: Full ROM, NORMAL INSPECTION - Neurological Exam Neurological Exam: Alert, Awake, Oriented x3 - Psychiatric Exam Psychiatric exam: Normal Affect, Normal Mood - Skin Skin Exam: Dry, Intact, Normal Color, Warm Assessment and Plan - Assessment and Plan (Free Text) Assessment: 47 year old female 1 day s/p appendectomy Plan: Regular diet Pain Control If diet is tolerated well; stable for d/c from surgical standpoint Patient should make an appointment with Dr. Fleming in 1 week upon discharge Discuss with Dr. Fleming <Ramone Fleming - Last Filed: 06/25/17 10:21> Subjective - Date & Time of Evaluation Time of Evaluation: 10:05 - Subjective Subjective: Patient was seen and examined at the bedside. Agree with resident's note above. Objective - Vital Signs/Intake and Output Vital Signs (last 24 hours): Temp Pulse Resp BP Pulse Ox 98.6 F 66 20 102/60 95 06/25/17 08:11 06/25/17 08:11 06/25/17 08:11 06/25/17 08:11 06/25/17 08:11 - Medications Medications: Current Medications Enoxaparin Sodium (Lovenox) 40 mg SC DAILY COUNTS INCLUDE 234 BEDS AT THE [facility] PRN Reason: Protocol Last Admin: 06/25/17 09:43 Dose: 40 mg Piperacillin Sod/Tazobactam (Sod 3.375 gm/ Sodium Chloride) 100 mls @ 100 mls/ hr IVPB 0300,0900,1500,2100 COUNTS INCLUDE 234 BEDS AT THE [facility] PRN Reason: Protocol Last Admin: 06/25/17 09:43 Dose: 100 mls/hr Lactated Ringer's (Lactated Ringer's) 1,000 mls @ 75 mls/hr IV .[id number] COUNTS INCLUDE 234 BEDS AT THE [facility] Last Admin: 06/25/17 00:54 Dose: 75 mls/hr Levothyroxine Sodium (Synthroid) 75 mcg PO DAILY@0630 COUNTS INCLUDE 234 BEDS AT THE [facility] Last Admin: 06/25/17 05:56 Dose: 75 mcg Morphine Sulfate (Morphine) 4 mg IVP Q4 PRN PRN Reason: Pain, severe (8-10) Ondansetron HCl (Zofran Inj) 4 mg IVP Q4 PRN PRN Reason: Nausea/Vomiting Oxycodone/Acetaminophen (Percocet 5/325 Mg Tab) 1 tab PO Q4 PRN PRN Reason: Pain, Mild (1-3) Stop: 06/27/17 09:39 Oxycodone/Acetaminophen (Percocet 5/325 Mg Tab) 2 tab PO Q4 PRN PRN Reason: Pain, moderate (4-7) Stop: 06/27/17 09:43 Last Admin: 06/25/17 09:53 Dose: 2 tab Pantoprazole Sodium (Protonix Ec Tab) 40 mg PO DAILY COUNTS INCLUDE 234 BEDS AT THE [facility] Last Admin: 06/25/17 09:43 Dose: 40 mg - Labs Labs: 06/25/17 05:30 06/25/17 05:30 PT 12.4 Seconds (9.8-13.1) 06/24/17 02:00 INR 1.1 (0.9-1.2) 06/24/17 02:00 APTT 30.5 Seconds (25.6-37.1) 06/24/17 02:00 - GI/Abdominal Exam Additional comments: soft, mild connor-incisional tenderness, ND, BS+, no rebound, no guarding, incisions clean, no erythema, no drainage, dermobond in place Assessment and Plan - Assessment and Plan (Free Text) Plan: - Regular diet - Pain control - Patient is clear for discharge home from the general surgery stand point - Augmentin for 1 week on discharge - Patient will follow up with me in the office in 10 days to 2 weeks for post- op visit
[2017-06-25] MEDS ORDERED: Enoxaparin 40 mg Syringe SC SCH (09:00)
[2017-06-25] MEDS: Pantoprazole 40 mg EC Tab PO SCH (09:43)
[2017-06-25 11:14] VITALS: BP 102/60; PULSE 66; TEMP 98.6; O2SAT 95
[2017-06-25 12:02] VITALS: RESP 20
--- NOTE | 2017-06-25 12:05 | CP.PCM.DIS ---
Provider - Provider Date of Admission: 06/24/17 02:23 Attending physician: Blanche Bhatti MD Primary care physician: Chano Pena MD Consults: General Surgery - Dr. Fleming Time Spent in preparation of Discharge (in minutes): 45 Diagnosis - Discharge Diagnosis (1) Acute appendicitis Status: Resolved Comment: 47F w/ PMHx seen in ED for acute appendicitis as seen on Abd/Pelvis CT. Surgery consulted - Dr. Fleming. Patient brought to ED for Laproscopic Appendectomy on 06/24/17. Per surgery pateint clear for discharge after tolerating breakfast. Rx. Augmentin x 1 week, Percocet x 1 week. F/u with Dr. Nicholas in [facility]. Call for f/u with Dr. Fleming 7-10 days after discharge Hospital Course - Lab Results Lab Results: Micro Results 06/24/17 02:30 Blood Blood Culture - Preliminary NO GROWTH AFTER 24 HOURS 06/24/17 02:00 Blood Blood Culture - Preliminary NO GROWTH AFTER 24 HOURS Most Recent Lab Values WBC 14.5 K/uL (4.8-10.8) H 06/25/17 05:30 RBC 3.80 Mil/uL (3.80-5.20) 06/25/17 05:30 Hgb 8.2 g/dL (12.0-16.0) L 06/25/17 05:30 Hct 25.9 % (34.0-47.0) L 06/25/17 05:30 MCV 68.3 fl (81.0-99.0) L 06/25/17 05:30 MCH 21.5 pg (27.0-31.0) L 06/25/17 05:30 MCHC 31.5 g/dL (33.0-37.0) L 06/25/17 05:30 RDW 18.3 % (11.5-14.5) H 06/25/17 05:30 Plt Count 271 K/uL (130-400) 06/25/17 05:30 MPV 8.0 fl (7.2-11.7) 06/25/17 05:30 Neut % (Auto) 88.1 % (50.0-75.0) H 06/25/17 05:30 Lymph % (Auto) 6.1 % (20.0-40.0) L 06/25/17 05:30 [place]mer % (Auto) 5.5 % (0.0-10.0) 06/25/17 05:30 Eos % (Auto) 0.0 % (0.0-4.0) 06/25/17 05:30 Baso % (Auto) 0.3 % (0.0-2.0) 06/25/17 05:30 Neut # (Auto) 12.8 K/uL (1.8-7.0) H 06/25/17 05:30 Lymph # (Auto) 0.9 K/uL (1.0-4.3) L 06/25/17 05:30 Parmer # (Auto) 0.8 K/uL (0.0-0.8) 06/25/17 05:30 Eos # (Auto) 0.0 K/uL (0.0-0.7) 06/25/17 05:30 Baso # (Auto) 0.0 K/uL (0.0-0.2) 06/25/17 05:30 Neutrophils % (Manual) 77 % (42-75) H 06/23/17 21:55 Band Neutrophils % 3 % (0-2) H 06/23/17 21:55 Lymphocytes % (Manual) 14 % (20-50) L 06/23/17 21:55 Monocytes % (Manual) 6 % (0-10) 06/23/17 21:55 Platelet Estimate Normal (NORMAL) 06/23/17 21:55 Polychromasia Slight 06/23/17 21:55 Hypochromasia (manual) Slight 06/23/17 21:55 Poikilocytosis (manual Slight 06/23/17 21:55 Anisocytosis (manual) Slight 06/23/17 21:55 Microcytosis (manual) Slight 06/23/17 21:55 Ovalocytes Slight 06/23/17 21:55 PT 12.4 Seconds (9.8-13.1) 06/24/17 02:00 INR 1.1 (0.9-1.2) 06/24/17 02:00 APTT 30.5 Seconds (25.6-37.1) 06/24/17 02:00 Sodium 143 mmol/l (132-148) 06/25/17 05:30 Potassium 3.4 MMOL/L (3.6-5.0) L 06/25/17 05:30 Chloride 110 mmol/L (98-107) H 06/25/17 05:30 Carbon Dioxide 22 mmol/L (22-30) 06/25/17 05:30 Anion Gap 14 (10-20) 06/25/17 05:30 BUN 7 mg/dl (7-17) 06/25/17 05:30 Creatinine 0.7 mg/dl (0.7-1.2) 06/25/17 05:30 Est GFR ( Amer) > 60 06/25/17 05:30 Est GFR (Non-Af Amer) > 60 06/25/17 05:30 Random Glucose 122 mg/dL (65-105) H 06/25/17 05:30 Calcium 8.6 mg/dL (8.4-10.2) 06/25/17 05:30 Iron 10 ug/dL (37-170) L 06/24/17 08:07 TIBC 485 ug/dL (250-450) H 06/24/17 08:07 % Saturation 2 % (20-55) L 06/24/17 08:07 Ferritin 7.0 ng/Ml (6.24-137.0) 06/24/17 06:05 Total Bilirubin 2.2 mg/dl (0.2-1.3) H 06/24/17 06:05 AST 37 U/L (14-36) H 06/24/17 06:05 ALT 33 U/L (9-52) 06/24/17 06:05 Alkaline Phosphatase 78 U/L (38-126) 06/24/17 06:05 Total Protein 6.9 G/DL (6.3-8.2) 06/24/17 06:05 Albumin 3.7 g/dL (3.5-5.0) 06/24/17 06:05 Globulin 3.2 gm/dL (2.2-3.9) 06/24/17 06:05 Albumin/Globulin Ratio 1.2 (1.0-2.1) 06/24/17 06:05 Lipase 81 U/L (23-300) 06/23/17 21:55 Vitamin B12 392 pg/mL (239-931) 06/24/17 06:05 Folate 12.3 ng/mL 06/24/17 06:05 Urine Color Straw (YELLOW) 06/23/17 21:55 Urine Clarity Clear (Clear) 06/23/17 21:55 Urine pH 7.0 (5.0-8.0) 06/23/17 21:55 Ur Specific [place] 1.005 (1.003-1.030) 06/23/17 21:55 Urine Protein Negative mg/dL (NEGATIVE) 06/23/17 21:55 Urine Glucose (UA) Neg mg/dL (Normal) 06/23/17 21:55 Urine Ketones Negative mg/dL (NEGATIVE) 06/23/17 21:55 Urine Blood Moderate (NEGATIVE) 06/23/17 21:55 Urine Nitrate Negative (NEGATIVE) 06/23/17 21:55 Urine Bilirubin Negative (NEGATIVE) 06/23/17 21:55 Urine Urobilinogen 0.2-1.0 mg/dL (0.2-1.0) 06/23/17 21:55 Ur Leukocyte Esterase Neg Teresa/uL (Negative) 06/23/17 21:55 Urine RBC (Auto) 7 /hpf (0-3) H 06/23/17 21:55 Urine Microscopic WBC < 1 /hpf (0-5) 06/23/17 21:55 Ur Squamous Epith Cells < 1 /hpf (0-5) 06/23/17 21:55 Urine Bacteria Rare (<OCC) 06/23/17 21:55 - Hospital Course Hospital Course: 47F w/ PMHx seen in ED for acute appendicitis as seen on Abd/Pelvis CT. Surgery consulted - Dr. Fleming. Patient brought to ED for Laproscopic Appendectomy on . Per surgery pateint clear for discharge after tolerating breakfast. Rx. Augmentin x 1 week, Percocet x 1 week given to patient by Surgical team Continue all at home medications F/u with Dr. Nicholas in [facility] 06/29/17 @ 4pm Call for f/u with Dr. Fleming 7-10 days after discharge - Date & Time of H&P Date of H&P: 06/25/17 Time of H&P: 12:06 Discharge Exam - Head Exam Head Exam: ATRAUMATIC, NORMOCEPHALIC - Eye Exam Eye Exam: EOMI, PERRL Pupil Exam: PERRL - ENT Exam ENT Exam: Mucous Membranes Moist - Respiratory Exam Respiratory Exam: NORMAL BREATHING PATTERN, UNREMARKABLE - GI/Abdominal Exam GI & Abdominal Exam: Guarding, Tenderness. absent: Distended, Firm, Rigid Additional comments: Guarding present secondary to post-operative state WNL - Rectal Exam Rectal Exam: Deferred - Extremities Exam Extremities exam: normal capillary refill - Neurological Exam Neurological exam: Alert, Oriented x3 - Psychiatric Exam Psychiatric exam: Normal Affect, Normal Mood - Skin Skin Exam: Intact, Normal Color, Warm Discharge Plan - Follow Up Plan Condition: FAIR Disposition: HOME/ ROUTINE Instructions: Amoxicillin and Clavulanate, Oxycodone and Acetaminophen, Appendectomy, Laparoscopic Surgery (DC) Additional Instructions[facility] el [facility] dentro de 1 semana Referrals: Ramone Fleming MD [Staff Provider] - Gonsalo Nicholas DO [Resident] - 06/29/17 4:00 pm
== END 2017-06-25 15:09 | disposition home or self-care (01) ==
LOC: H.ER 20:45 → INTOOBSV 06-24 02:23 → H.ERHOLD 06-24 02:23 → H.MEDSURG1 06-24 04:16
PROVIDERS: ADMIT Family Medicine Geriatric Medicine; ATTEND Family Medicine Geriatric Medicine
DX: K35.80 Unspecified acute appendicitis (principal); I95.81 Postprocedural hypotension; E03.9 Hypothyroidism, unspecified; D64.9 Anemia, unspecified; E66.9 Obesity, unspecified; Z68.34 Body mass index [BMI] 34.0-34.9, adult
CPT/HCPCS: 36415; 44970; 71045; 74177; 80048; 80053; 81003; 81025; 82607; 82728; 82746; 83540; 83550; 83690; 85025; 85610; 85730; 87040; 87086; 88304; 93005; 96374; 99285; G0378; J0330; J1100; J1650; J1756; J1885; J2001; J2250; J2270; J2405; J2543; J2704; J2710; J3010; J7040; J7120; Q9966; Q9967

== ENCOUNTER 2018-06-09 11:27 | Day surgery (SDC) | payer SELFPAY ==
[2018-06-09] MEDS ORDERED: Lactated Ringer's 1,000 ML IV ONE (12:17)
--- NOTE | 2018-06-09 12:44 | CP.SDSHP ---
Same Day Surgery H & P - History Proposed Procedure: open incisional hernia repair Pre-Op Diagnosis: incisional hernia - Previous Medical/Surgical History Endocrine/Metabolic: Thyroid Disease (hypo-) Misc: Anemia Pain: 3. Previous Surgical History: , laparoscopic appendectomy - Allergies Allergies: Allergies No Known Allergies Allergy (Verified 06/23/17 20:59) - Current Medications Current Medications: synthroid, iron - Physical Exam General Appearance: NAD, non-toxic, well nourished Vital Signs: Vital Signs 06/09/18 12:05 Temperature 99 F Pulse Rate 69 Respiratory 18 Rate Blood Pressure 109/69 O2 Sat by Pulse 98 Oximetry Neuro: WNL Heart: WNL Lungs: WNL GI: WNL - {Optional Preform as Required} Abdomen: Other (LLQ incisional hernia) - Impression Impression: 48F with PMH of hypothyroidism and anemia presents for incisoinal hernia repair Pt. Evaluated Today:Candidate for Anesthesia & Procedure: Yes - Date & Time Date: 06/09/18 Time: 12:43 Short Stay Discharge - Short Stay Discharge Admitting Diagnosis/Reason for Visit: K43.9 Disposition: HOME/ ROUTINE Referrals: Cinthya Jacobo MD [Staff Provider] - Nimesh Stuart MD [Primary Care Provider] - Follow-up: follow up with Dr. Jacobo in 1 week Instructions: Open Herniorrhaphy (DC) Additional Instructions (Diet, Activity): No heavy lifting for 4-6 weeks May shower Keep area clean and dry may change dressing as needed Steri strips will fall off on their own Follow up with Dr. Jacobo in [address] Jacobo's office for any issues No levantar objetos pesados para 4-6 semanas Puede ducharse Mantenga el carmen limpia y seca puede cambiar el vendaje segn sea necesario Steri-strips se caern por eddy cuenta Seguimiento con Dr. Jacobo en eliza semana. Llame a la oficina de Dr. Jacobo para cualquier problema. Progress Note/Discharge Note with Instructions: 48F with PMH of hypothyroidism, anemia, s/p laparoscopic appendectomy, and s/p presented for incisional hernia repair Patient s/p incisional hernia repair with mesh Patient to be discharged home when SDS criteria are met
[2018-06-09] MEDS ORDERED: Midazolam 2 MG/2 ML VIAL ONE (13:20)
[2018-06-09] MEDS ORDERED: ePHEDrine 50 mg/ml Inj ONE (13:20)
[2018-06-09] MEDS ORDERED: Propofol 10 mg/ml Inj (20 ML) ONE (13:20)
[2018-06-09] MEDS ORDERED: Succinylcholine Chloride 20 mg/ml Syr (5 ml) IV ONE (13:23)
[2018-06-09] MEDS ORDERED: ceFAZolin 2 GM in Sodium Chloride 0.9% 100 ML IVPB ONE (13:29)
[2018-06-09] MEDS ORDERED: Lidocaine 4% (Laryng-O-Jet) Kit MM ONE (13:38)
[2018-06-09] MEDS ORDERED: Desflurane Inhalation Anesthetic Liq (240 ml) ONE (14:26)
--- NOTE | 2018-06-09 15:04 | PCM.SURG1 ---
Surgeon's Initial Post Op Note - Surgeon's Notes Surgeon: Dr. Jacobo Lead Rider: Rayo PGY2, Cali PGY1 Type of Anesthesia: General Endo Anesthesia Administered By: Dr. Rosales Pre-Operative Diagnosis: Incisional hernia Operative Findings: Incisional hernia Post-Operative Diagnosis: Incisional hernia Operation Performed: Incisional hernia repair with mesh Specimen/Specimens Removed: incarcerated omentum Estimated Blood Loss: EBL {In ML}: 25 Blood Products Given: N/A Drains Used: No Drains Post-Op Condition: Good Date of Surgery/Procedure: 06/09/18 Time of Surgery/Procedure: 15:03
[2018-06-09] MEDS ORDERED: Oxycodone/Acetaminophen 5/325 mg Tab PO PRN (15:08)
[2018-06-09] MEDS: HYDROmorphone 0.5 mg/0.5 ml ISec IVP PRN ×2 (15:10→15:25)
--- NOTE | 2018-06-09 15:11 | PCM.OP ---
Operative Report - Operative Report Date of Surgery/Procedure: 06/09/18 Time of Surgery/Procedure: 15:03 Surgeon: Dr. Jacobo Yard Conductor: Rayo BELLE Anesthesia/Sedation: General Endotracheal Anesthesia Dr. Rosales Pre-Operative Diagnosis: Incisional hernia Post-Operative Diagnosis: Incisional Hernia Indication for Surgery: Incisional Hernia Operative Findings: omental fat containing incisional hernia Procedure/Operation Description: Procedure: Open incisional hernia repair with mesh 48-year-old female with Past medical history that include s/p laparoscopic appendectomy presents with incisional hernia. Proposed procedure was incisional hernia repair with mesh. Consent was obtained before the procedure. Risks/benefits were discussed at length. Patient verbalized understanding and agreement. Patient was taken to the Operating room and placed in supine position. SCDs were applied to bilateral lower extremities. General endotracheal anesthesia was administered for the procedure. Patients abdomen was prepped with chlorhexadine and draped in the usual sterile fashion. Timeout was performed. #11 blade was used to make an oblique incision over the hernia site in LLQ. The subcutaneous tissue was divided down to the fascia. The external fascia was divided and the defect was identified. Fat containing hernia sac was dissected off the fasciae edges. Inflamed omentum was present in the hernia. Once the hernia sac was dissected of the fasciae edges, the hernia was easily reduced. Prolene system was the positioned in an underlay fashion through the defect. It was well positioned underneath the peritoneum and transversalis fascia. It was then sutured in with four 2-0 prolene interrupted sutures ( two on each side of the defect). In each corner, one additional suture was placed to approximate the defect. The area was examined for hemostasis. The subcutaneous tissue was approximated with interrupted 3-0 vicryl sutures. The subcuticular layer was then closed with a running 4-0 monocryl suture. The skin was dressed with dermabond. All nursing counts were correct and confirmed. The patient tolerated the procedure well with no apparent complications. Patient transferred to PACU for recovery. Ebl was 25cc. Patient cleared for discharge when SDS criteria met. Estimated Blood Loss: 25 cc Complications: None Specimen: omental fat Discharge & Condition: Good, patient stable for discharge home when SDS criteria met
[2018-06-09] MEDS ORDERED: HYDROmorphone 0.5 mg/0.5 ml ISec ONE (15:12)
[2018-06-09] MEDS ORDERED: Lactated Ringer's 1,000 ML IV SCH (15:15)
[2018-06-09 16:45] VITALS: RESP 18
[2018-06-09 18:01] VITALS: O2SAT 100
[2018-06-09 18:37] VITALS: BP 110/76; PULSE 63; TEMP 97.4
== END 2018-06-09 19:05 | disposition home or self-care (01) ==
LOC: H.OPSURG 11:27
PROVIDERS: ATTEND Specialist
DX: K43.2 Incisional hernia without obstruction or gangrene (principal); E78.5 Hyperlipidemia, unspecified
CPT/HCPCS: 49654; 88305; C1781; J0690; J1170; J2250; J2704; J2765; J3010; J7030; J7120